=== PATIENT | female | born 1980 | race Caucasian/White ===

== ENCOUNTER 2018-05-04 22:44 | Emergency (ER) | payer BC, OTHER ==
[2018-05-04 23:06] VITALS: BP 118/82
--- NOTE | 2018-05-04 23:29 | ED Physician Documentation ---
History of Present Illness - Stated complaint Stated Complaint: RT LEG PX/SWOLLEN - Chief complaint Chief Complaint: Wound - History obtained from History obtained from: Patient - Additonal information Additional information: 37-year-old female presents to the emergency department for evaluation of redness and swelling of the right lower extremity which developed over the past 2 days. The patient's redness has significantly worsened along with her pain. The patient denies fevers, chills, cough, congestion. The patient denies calf pain or injury. Symptoms are described as moderate. No specific triggering factors. No relieving factors Review of Systems Constitutional: reports: Fatigue. denies: Fever, Chills Eyes: denies: Discharge Nose: denies: Congestion Throat: denies: Sore throat Cardiac: denies: Chest pain / pressure Respiratory: denies: Dyspnea GI: denies: Abdominal Pain : denies: Dysuria Skin: reports: Other (Redness) Musculoskeletal: denies: Neck pain Neurologic: denies: Generalized weakness Immunocompromised: denies: Chemotherapy PD PAST MEDICAL HISTORY - Past Medical History Past Medical History: No Cardiovascular: None Respiratory: None Neuro: None Endocrine/Autoimmune: None GI: None FATBACK TRIMMER: None : None HEENT: None Psych: None Musculoskeletal: None Derm: None - Past Surgical History Past Surgical History: No - Present Medications Home Medications: Ambulatory Orders Medication Instructions Recorded Confirmed Doxycycline Hyclate 100 mg PO BID #20 capsule 05/04/18 - Allergies Allergies/Adverse Reactions: Allergies Allergy/AdvReac Type Severity Reaction Status Date / Time sulfamethoxazole Allergy Rash Verified 05/04/18 23:06 [From Bactrim] trimethoprim [From Bactrim] Allergy Rash Verified 05/04/18 23:06 - Social History Does the pt smoke?: No Smoking Status: Never smoker Does the pt drink ETOH?: No Does the pt have substance abuse?: No - Immunizations Immunizations are current?: Yes - POLST Patient has POLST: No PD ED PE NORMAL - General General: Alert and oriented X 3, No acute distress - HEENT HEENT: Atraumatic, PERRL, EOMI, Ears normal - Derm Derm: Other (The patient has erythematous and cellulitic changes of the right lower extremity below the knee. There is no crepitus or blistering of the skin. The patient has full active range of motion of the hip, knee ankles and foot. There is brisk cap refill and a normal dorsalis pedis pulse) - Extremities Extremities: Normal ROM s pain - Neuro Neuro: Alert and oriented X 3, Normal speech - Psych Psych: Normal mood Results - Vitals Vitals: Vital Signs - 24 hr 05/04/18 05/04/18 23:03 23:36 Temperature 37.2 C Heart Rate 110 H 98 Respiratory 18 18 Rate Blood Pressure 118/82 H 118/82 H O2 Saturation 98 98 Oxygen O2 Source Room air PD MEDICAL DECISION MAKING - ED course ED course: The patient will be treated as an outpatient for lower extremity cellulitis. Currently, there is no evidence of sepsis or necrotizing fasciitis on exam. The patient appears appropriate for discharge home in ongoing outpatient management. The patient will be placed on a course of oral antibiotics. I discussed warning signs and recommended returning to the emergency department immediately for any worsening or any concerns. - Sepsis Event Vital Signs: Vital Signs - 24 hr 05/04/18 05/04/18 23:03 23:36 Temperature 37.2 C Heart Rate 110 H 98 Respiratory 18 18 Rate Blood Pressure 118/82 H 118/82 H O2 Saturation 98 98 Oxygen O2 Source Room air Departure - Departure Disposition: 01 Home, Self Care Clinical Impression: Cellulitis Qualifiers: Site of cellulitis: extremity Site of cellulitis of extremity: lower extremity Laterality: unspecified laterality Qualified Code(s): L03.119 - Cellulitis of unspecified part of limb Condition: Good Instructions: Cellulitis Dc, ED Cellulitis Ch Follow-Up: SKYE ZHANG MD [Primary Care Provider] - (Please have your wound re-checked in 24-36 hours) Prescriptions: Doxycycline Hyclate 100 mg PO BID #20 capsule Comments: Please return to the ED for worsening symptoms or any concerns Discharge Date/Time: 05/04/18 23:36
[2018-05-04] MEDS: DOXYCYCLINE 100 MG TABLET PO STA (23:34)
== END 2018-05-04 23:36 | disposition home or self-care (01) ==
LOC: ED 22:44
DX: L03.115 Cellulitis of right lower limb (principal)
CPT/HCPCS: 99283; A9270

== ENCOUNTER 2023-01-25 07:46 | Outpatient (CLI) | payer OTHER ==
[2023-01-25 14:51] LABS: BUN - BLOOD UREA NITROGEN 11 mg/dL (6-20); CALCIUM 9.2 mg/dL (8.5-10.3); CARBON DIOXIDE - CO2 26 mmol/L (21-32); CHLORIDE 110 mmol/L (101-111); CHOLESTEROL 204 mg/dL; CREATININE 0.8 mg/dL (0.4-1.0); GFR - MDRD 78 (>89); GLUCOSE 92 mg/dL (70-100); HDL CHOLESTEROL 68 mg/dL; LDL CHOLESTEROL,CALCULATED 122 mg/dL; LDL/HDL RATIO 1.8 (<4.4); POTASSIUM 4.1 mmol/L (3.5-5.0); SODIUM 142 mmol/L (135-145); TRIGLYCERIDES 68 mg/dL; VLDL CHOLESTEROL 14 mg/dL
[2023-01-26 07:09] LABS: HCV AB Non Reactive (Non Reactive)
== END 2023-01-25 07:47 | disposition home or self-care (01) ==
LOC: LAB.S 07:46
PROVIDERS: ATTEND Registered Nurse
DX: Z13.1 Encounter for screening for diabetes mellitus (principal); Z13.220 Encounter for screening for lipoid disorders; Z11.59 Encounter for screening for other viral diseases
CPT/HCPCS: 36415; 80048; 80061; 83721; 86803